=== PATIENT | female | born 1995 | race Caucasian/White ===

== ENCOUNTER 2019-04-21 22:13 | Inpatient (IN) | payer MEDICAID ==
[2019-04-21 23:05] LABS: ADD UMIC NO; UR ASCORBIC ACID 20 mg/dL (NEGATIVE); UR BILIRUBIN (Dip) NEGATIVE (NEGATIVE); UR BLOOD (Dip) NEGATIVE (NEGATIVE); UR CLARITY CLEAR (CLEAR); UR COLOR YELLOW (YELLOW); UR GLUCOSE (Dip) NEGATIVE (NEGATIVE); UR KETONES (Dip) NEGATIVE (NEGATIVE); UR LEUKOCYTE ESTERASE (Dip) NEGATIVE Leu/ul (NEGATIVE); UR NITRITE (Dip) NEGATIVE (NEGATIVE); UR SPECIFIC GRAVITY (Dip) 1.018 (1.003-1.030); UR TOTAL PROTEIN (Dip) NEGATIVE (NEGATIVE); UR UROBILINOGEN (Dip) NEGATIVE (NEGATIVE)
[2019-04-21] MEDS ORDERED: TERBUTALINE 1 ML (23:57)
[2019-04-22] MEDS: LACTATED RINGER'S 1,000 ML IV ×5 (00:20→22:43)
[2019-04-22] MEDS: TERBUTALINE 1 MG/ML INJ SC ×2 (00:20→02:14)
[2019-04-22] MEDS: NIFEdipine 10 MG CAP PO ×5 (02:13→17:51)
[2019-04-22] MEDS ORDERED: ACETAMINOPHEN 325 MG TAB PO (04:30)
[2019-04-22 05:50] LABS: ADD MAN DIFF? NO
[2019-04-22 06:02] LABS: WHITE BLOOD COUNT 9.1 10^3/ul (4.8-10.8)
[2019-04-22 06:02] LABS: BASOPHILS % 0.3 % (0.0-2.0); EOSINOPHILS % 0.3 % (0.0-7.0); HEMATOCRIT 29.3 % (37.0-47.0); HEMOGLOBIN 9.3 g/dl (12.0-16.0); LYMPHOCYTES % 22.2 % (15.0-51.0); MEAN CORPUSCULAR HEMOGLOBIN 25.5 pg (29.0-33.0); MEAN CORPUSCULAR HGB CONC 31.7 g/dl (32.0-37.0); MEAN CORPUSCULAR VOLUME 80.3 fl (82.0-101.0); MEAN PLATELET VOLUME 11.3 fl (7.4-10.4); MONOCYTE # 0.5 10^3/ul (0.3-0.9); NEUTROPHIL # 6.4 10^3/ul (1.6-7.5); NEUTROPHILS % 70.4 % (39.0-77.0); PLATELET COUNT 161 10^3/UL (140-415); RED BLOOD COUNT 3.65 10^6/ul (4.20-5.40); RED CELL DISTRIBUTION WIDTH 15.5 % (11.5-14.5)
[2019-04-22] MEDS: BETAMET NA PHOS/AC(6 MG/ML) 2 ML INJ SYG IM (06:04)
[2019-04-22] MEDS: DOCUSATE SODIUM 100 MG CAP PO (09:28)
[2019-04-22] MEDS: PRENATAL VITAMIN PO (09:29)
[2019-04-23] MEDS: NIFEdipine 10 MG CAP PO ×4 (00:46→17:57)
[2019-04-23] MEDS: BETAMET NA PHOS/AC(6 MG/ML) 2 ML INJ SYG IM (05:51)
[2019-04-23] MEDS: LACTATED RINGER'S 1,000 ML IV ×4 (05:57→17:08)
[2019-04-23] MEDS: PRENATAL VITAMIN PO (09:04)
[2019-04-23] MEDS: DOCUSATE SODIUM 100 MG CAP PO (09:04)
[2019-04-24] MEDS: NIFEdipine 10 MG CAP PO ×4 (00:13→11:32)
[2019-04-24] MEDS: LACTATED RINGER'S 1,000 ML IV ×2 (02:05→13:57)
[2019-04-24] MEDS: PRENATAL VITAMIN PO (09:13)
[2019-04-24] MEDS: DOCUSATE SODIUM 100 MG CAP PO (09:13)
== END 2019-04-24 15:25 | disposition home or self-care (01) | DRG 833 ==
LOC: OBT 22:13 → L-D 22:14 → PP1 04-22 05:22
DX: O60.03 Preterm labor without delivery, third trimester (principal); Z3A.34 34 weeks gestation of pregnancy
CPT/HCPCS: 36415; 76815; 76818; 81003; 85025; 86850; 86900; 86901; 87081; 96360; 96361; 96372

== ENCOUNTER 2019-05-07 04:15 | Outpatient (CLI) | payer MEDICAID ==
[2019-05-07] MEDS ORDERED: TERBUTALINE 1 ML (08:31)
[2019-05-07 08:34] LABS: ADD UMIC NO; UR ASCORBIC ACID NEGATIVE (NEGATIVE); UR BILIRUBIN (Dip) NEGATIVE (NEGATIVE); UR BLOOD (Dip) NEGATIVE (NEGATIVE); UR CLARITY SLIGHTLY CLOUDY (CLEAR); UR COLOR YELLOW (YELLOW); UR GLUCOSE (Dip) NEGATIVE (NEGATIVE); UR KETONES (Dip) NEGATIVE (NEGATIVE); UR LEUKOCYTE ESTERASE (Dip) NEGATIVE Leu/ul (NEGATIVE); UR MUCUS FEW /HPF (NONE SEEN); UR NITRITE (Dip) NEGATIVE (NEGATIVE); UR RBC 1 /HPF (0-5); UR SPECIFIC GRAVITY (Dip) 1.015 (1.003-1.030); UR SQUAMOUS EPITHELIAL CELL FEW /HPF (FEW); UR TOTAL PROTEIN (Dip) NEGATIVE (NEGATIVE); UR UROBILINOGEN (Dip) NEGATIVE (NEGATIVE); UR WBC 1 /HPF (0-5)
[2019-05-07] MEDS: TERBUTALINE 1 MG/ML INJ SC (09:01)
[2019-05-07] MEDS: LACTATED RINGER'S 1,000 ML IV (09:02)
== END 2019-05-07 10:00 | disposition home or self-care (01) ==
LOC: OBT 04:15 → L-D 04:15 → OBT 10:00
DX: O62.9 Abnormality of forces of labor, unspecified (principal); Z3A.36 36 weeks gestation of pregnancy
CPT/HCPCS: 36415; 76818; 81001; 81003; 96360; 96372

== ENCOUNTER 2019-05-08 12:10 | Outpatient (CLI) | payer MEDICAID ==
[2019-05-08 13:27] LABS: ADD UMIC YES; UR ASCORBIC ACID NEGATIVE (NEGATIVE); UR BACTERIA FEW /HPF (NONE SEEN); UR BILIRUBIN (Dip) NEGATIVE (NEGATIVE); UR BLOOD (Dip) NEGATIVE (NEGATIVE); UR CLARITY CLEAR (CLEAR); UR COLOR STRAW (YELLOW); UR GLUCOSE (Dip) NEGATIVE (NEGATIVE); UR KETONES (Dip) NEGATIVE (NEGATIVE); UR LEUKOCYTE ESTERASE (Dip) TRACE Leu/ul (NEGATIVE); UR NITRITE (Dip) NEGATIVE (NEGATIVE); UR RBC 1 /HPF (0-5); UR SPECIFIC GRAVITY (Dip) 1.002 (1.003-1.030); UR TOTAL PROTEIN (Dip) NEGATIVE (NEGATIVE); UR UROBILINOGEN (Dip) NEGATIVE (NEGATIVE); UR WBC 1 /HPF (0-5)
[2019-05-08 13:35] LABS: RUPTURE FETAL MEMBRANES NEGATIVE (NEGATIVE)
== END 2019-05-08 15:55 | disposition home or self-care (01) ==
LOC: OBT 12:10 → L-D 12:11 → OBT 15:55
DX: O41.03X0 Oligohydramnios, third trimester, not applicable or unspecified (principal); Z3A.36 36 weeks gestation of pregnancy
CPT/HCPCS: 76818; 81001; 84112; 87086

== ENCOUNTER 2019-05-12 17:02 | Outpatient (CLI) | payer MEDICAID | END 2019-05-12 17:51 | disposition home or self-care (01) | LOC: OBT 17:02 → L-D 17:03 → OBT 17:51 | DX: O41.93X0 Disorder of amniotic fluid and membranes, unspecified, third trimester, not applicable or unspecified (principal); Z3A.37 37 weeks gestation of pregnancy | CPT/HCPCS: 76818 ==

== ENCOUNTER 2019-05-19 09:36 | Outpatient (CLI) | payer MEDICAID | END 2019-05-19 13:25 | disposition home or self-care (01) | LOC: OBT 09:36 → L-D 09:37 → OBT 13:25 | DX: O62.9 Abnormality of forces of labor, unspecified (principal); Z3A.38 38 weeks gestation of pregnancy | CPT/HCPCS: 76818 ==

== ENCOUNTER 2019-05-27 10:56 | Outpatient (CLI) | payer MEDICAID | END 2019-05-27 12:20 | disposition home or self-care (01) | LOC: OBT 10:56 → L-D 10:58 → OBT 12:20 | DX: O36.8130 Decreased fetal movements, third trimester, not applicable or unspecified (principal); Z3A.38 38 weeks gestation of pregnancy | CPT/HCPCS: 76818 ==

== ENCOUNTER 2019-06-01 23:05 | Inpatient (IN) | payer MEDICAID ==
[2019-06-02] MEDS ORDERED: LIDOCAINE 1% (MPF) 30 ML INJ INJ
[2019-06-02] MEDS ORDERED: BUTORPHANOL 2 MG INJ IV ×2
[2019-06-02] MEDS ORDERED: IBUPROFEN 600 MG TAB PO
[2019-06-02] MEDS: AMPICILLIN 2 GM/NS (PMX) 100 ML IV (00:29)
[2019-06-02] MEDS: LACTATED RINGER'S 1,000 ML IV ×4 (00:29→04:04)
[2019-06-02] MEDS ORDERED: MINERAL OIL LIGHT 10 ML VIAL TOP (00:30)
[2019-06-02 00:42] LABS: ADD MAN DIFF? NO
[2019-06-02 00:46] LABS: WHITE BLOOD COUNT 8.2 10^3/ul (4.8-10.8)
[2019-06-02 00:46] LABS: BASOPHILS % 0.5 % (0.0-2.0); EOSINOPHILS # 0.1 10^3/ul (0.0-0.5); EOSINOPHILS % 0.7 % (0.0-7.0); HEMATOCRIT 38.4 % (37.0-47.0); HEMOGLOBIN 12.2 g/dl (12.0-16.0); LYMPHOCYTES # 1.8 10^3/ul (0.8-2.9); MEAN CORPUSCULAR HEMOGLOBIN 24.6 pg (29.0-33.0); MEAN CORPUSCULAR HGB CONC 31.8 g/dl (32.0-37.0); MEAN CORPUSCULAR VOLUME 77.4 fl (82.0-101.0); MEAN PLATELET VOLUME 11.2 fl (7.4-10.4); MONOCYTE # 0.6 10^3/ul (0.3-0.9); MONOCYTES % 6.7 % (0.0-11.0); NEUTROPHIL # 5.7 10^3/ul (1.6-7.5); NEUTROPHILS % 69.5 % (39.0-77.0); PLATELET COUNT 199 10^3/UL (140-415); RED BLOOD COUNT 4.96 10^6/ul (4.20-5.40); RED CELL DISTRIBUTION WIDTH 17.6 % (11.5-14.5)
[2019-06-02 01:05] LABS: PROTIME 12.3 Sec (11.9-14.9)
[2019-06-02 01:06] LABS: PARTIAL THROMBOPLASTIN TIME 25.8 Sec (23.0-35.0)
[2019-06-02 01:09] LABS: AMPHETAMINE/METHAMPHETAMINE Negative (NEGATIVE); BARBITURATES Negative (NEGATIVE); BENZODIAZEPINES Negative (NEGATIVE); CANNABINOIDS Negative (NEGATIVE); COCAINE Negative (NEGATIVE); OPIATES Negative (NEGATIVE)
[2019-06-02 01:34] LABS: HEPATITIS B SURFACE ANTIGEN NEGATIVE (NEGATIVE)
[2019-06-02] MEDS ORDERED: FENTAnyl 2MCG/ML-ROPIV 0.2% 100 ML (02:44)
[2019-06-02] MEDS ORDERED: AMPICILLIN 1 GM/NS (PMX) 50 ML IV (04:00)
[2019-06-02] MEDS ORDERED: FENTAnyl 2MCG/ML-ROPIV 0.2% 100 ML BAG EPI (04:30)
[2019-06-02] MEDS ORDERED: NALOXONE (0.4 MG/ML) INJ IV (04:30)
[2019-06-02] MEDS ORDERED: DIPHENHYDRAMINE 50 MG INJ IV (04:30)
[2019-06-02] MEDS ORDERED: ONDANSETRON 4 MG INJ IV (04:30)
[2019-06-02] MEDS: OXYTOCIN 30 UNITS/LR 500 ML IV ×3 (04:44→05:00)
[2019-06-02] MEDS ORDERED: CARBOPROST 250 MCG INJ IM ×2 (05:00)
[2019-06-02] MEDS ORDERED: MISOPROSTOL 200 MCG TAB PR ×2 (05:00)
[2019-06-02] MEDS ORDERED: HYDROCODONE/APAP (5/325) TAB PO (05:00)
[2019-06-02] MEDS ORDERED: METHYLERGONOVINE 0.2 MG INJ IM ×2 (05:00)
[2019-06-02] MEDS ORDERED: OXYTOCIN 30 UNITS/LR 500 ML IV ×3 (05:00)
[2019-06-02] MEDS: LACTATED RINGER'S 1,000 ML IV* (05:00)
[2019-06-02] MEDS: IBUPROFEN 600 MG TAB PO ×4 (09:34→23:40)
[2019-06-02] MEDS: LANOLIN HPA 1 PKT TOP (17:47)
[2019-06-02 19:23] LABS: RAPID PLASMA REAGIN NONREACTIVE (NR)
[2019-06-03] MEDS: IBUPROFEN 600 MG TAB PO ×3 (05:44→17:31)
[2019-06-03 08:21] LABS: ADD MAN DIFF? NO
[2019-06-03 08:23] LABS: BASOPHILS % 0.4 % (0.0-2.0); EOSINOPHILS # 0.1 10^3/ul (0.0-0.5); EOSINOPHILS % 1.2 % (0.0-7.0); HEMATOCRIT 37.9 % (37.0-47.0); HEMOGLOBIN 11.6 g/dl (12.0-16.0); LYMPHOCYTES # 2.8 10^3/ul (0.8-2.9); LYMPHOCYTES % 27.5 % (15.0-51.0); MEAN CORPUSCULAR HEMOGLOBIN 24.7 pg (29.0-33.0); MEAN CORPUSCULAR HGB CONC 30.6 g/dl (32.0-37.0); MEAN CORPUSCULAR VOLUME 80.6 fl (82.0-101.0); MONOCYTE # 0.6 10^3/ul (0.3-0.9); MONOCYTES % 6.2 % (0.0-11.0); NEUTROPHIL # 6.4 10^3/ul (1.6-7.5); NEUTROPHILS % 64.1 % (39.0-77.0); PLATELET COUNT 196 10^3/UL (140-415); RED CELL DISTRIBUTION WIDTH 18.9 % (11.5-14.5)
[2019-06-04] MEDS: IBUPROFEN 600 MG TAB PO ×3 (00:17→13:14)
[2019-06-04] MEDS: DIPHTH/TET/ACEL PERTUSS (ADULT) 0.5 ML VIAL IM* (09:00)
== END 2019-06-04 14:51 | disposition home or self-care (01) | DRG 807 ==
LOC: OBT 23:05 → L-D 06-02 01:48 → PP1 06-02 09:47 → OBT 23:30 → L-D 23:30
PROC: 10E0XZZ Delivery of Products of Conception, External Approach (ICD-10-PCS; principal; 2019-06-02)
PROC: 3E033VJ Introduction of Other Hormone into Peripheral Vein, Percutaneous Approach (ICD-10-PCS; 2019-06-02)
DX: O69.89X0 Labor and delivery complicated by other cord complications, not applicable or unspecified (principal); Z37.0 Single live birth; Z3A.39 39 weeks gestation of pregnancy
CPT/HCPCS: 62322; 80307; 85025; 85610; 85730; 86592; 86850; 86900; 86901; 87340; 99464